=== PATIENT | male | born 1965 | race Caucasian/White ===

== ENCOUNTER 2019-05-17 14:01 | Outpatient (CLI) | payer OTHER, SELFPAY ==
--- NOTE | 2019-05-17 14:09 | XR_ITS ---
WS: [id number] LUMBAR SPINE FLEXION AND EXTENSION TECHNIQUE: 3 views of the lumbar spine: Lateral neutral, flexion, and extension views. CLINICAL INFORMATION: POSTLAMINECTOMY SYNDROME COMPARISON: None. FINDINGS: Prior postoperative changes pedicle screw fixation L3-L5 with interbody fusion grafts. Slight retroli sthesis L2 on L3. No significant instability on flexion-extension. Anterior hypertrophic changes in t he lower thoracic and upper lumbar spine. Anterior wedging at T11. XR/XR lumbar spine f/e only [id number] IMPRESSION: No instability on flexion-extension
== END 2019-05-17 14:02 | disposition home or self-care (01) ==
LOC: RADWPI 14:08
PROVIDERS: Family Provider Family Medicine; PCP Family Medicine; Visit Provider Anesthesiology Pain Medicine
DX: M96.1 Postlaminectomy syndrome, not elsewhere classified (principal)
CPT/HCPCS: 72120

== ENCOUNTER 2019-07-12 08:39 | Outpatient (CLI) | payer OTHER, SELFPAY ==
--- NOTE | 2019-07-12 09:00 | IR_ITS ---
WS: [id number] THORACIC AND LUMBAR MYELOGRAMs HISTORY: Preoperative thoracic spinal cord stimulator placement COMPARISON: None available. FLUOROSCOPY TIME: 1.9 minutes. Procedure, risks and complications were explained to the patient. Risks including bleeding, infection , headaches, allergic reaction and seizures. Consent has been obtained. With the patient in prone position the skin over the lumbar region is cleansed with ChloraPrep and an esthetized with lidocaine. 22-gauge spinal needle is inserted into the thecal sac at the appropriate level determined by fluoroscopy. Omnipaque 300; 12 ml is injected slowly under fluoroscopy with no co mplications. Needle bevel is perpendicular to the longitudinal fibers of the dura. Stylet is reinsert ed prior to removal of the needle. Patient tolerated the procedure well. Patient will proceed to CT f or further evaluation. Posterior thoracic alignment is normal with slight RIGHT curvature. Mild disc space narrowing through out. Anterior bridging osteophytes at the thoracolumbar junction. No fractures. Posterior lumbar fusion from L3 through L5. Bilateral pedicle screws and vertical rods. Large laminec kath defects at the surgical site. Bony bridging graft noted bilaterally. No hardware fractures. Inte rbody spacers at L3-4 and L4-5. L2: L2 retrolisthesis by 4.1 mm on neutral. Decreased disc to 3.1 mm with flexion and 6.1 mm during e xtension. No additional instability. IR/IR myelogram spine thorac/lumb IMPRESSION: 1. Prior fusion hardware with interbody spacers and fused bone graft material from L3 to L5. 2. Mild flexion/extension instability at L2. 3. Mild thoracic spondylosis with no fracture. 4. Mild RIGHT convex curvature thoracic spine.
[2019-07-12] MEDS: iohexol 300 mg/mL 50 mL Btl INTRATHECA (10:02)
--- NOTE | 2019-07-12 11:00 | CT_ITS ---
WS: [id number] CT THORACIC MYELOGRAM HISTORY: Thoracic back pain. Preoperative spinal cord stimulator placement TECHNIQUE: Contiguous 2.5 mm axial images are reviewed to thoracic spine. Images are reformatted in s agittal and coronal planes. All CT scans at [facility] use at least one of these dose opt imization techniques: automated exposure control; mA and/or kV adjustment per patient size (includes targeted exams where dose is matched to clinical indication); or iterative reconstruction. DLP: 976.46 mGycm COMPARISON: None available. Very slight RIGHT convex curvature the lumbar spine. No fractures. Mild disc space narrowing througho ut the thoracic spine with osteophytes. There is artifact through the upper thoracic spine by patient's shoulders and body habitus. There is also limited contrast in the subarachnoid space. The contrast becomes more dense at about the T3-T4 l evel. No significant stenosis centrally. Bilateral mild to moderate foraminal stenosis from T1-2 through T3 -4. T4-5: Large osteophyte and disc complex RIGHT paracentral at T4-5 with contact and deformity of the R IGHT lateral thecal sac. Moderate to severe LEFT foraminal stenosis at the T4-5 level and mild centra l stenosis. T5-6: Severe RIGHT and moderate LEFT foraminal stenosis and mild central stenosis. T6-7: Mild bilateral foraminal stenosis due to osteophytes. T7-8: Small RIGHT paracentral disc protrusion with mild cord contact. T8-9 through T12-L1: Moderate bilateral foraminal stenosis due to combination of disc and facet disea se. Large osteophyte encroaches upon the RIGHT lateral thecal sac at the T11 level. Paravertebral soft tissues are negative. CT/CT thoracic spine w con [id number] IMPRESSION: 1. RIGHT convex curvature thoracic spine with multilevel facet joint arthritis and osteophytosis. 2. Large disc osteophyte contacts the RIGHT lateral thoracic cord with displac ement at the T4-5 level. 3. Small RIGHT paracentral disc protrusion at T7-8 with mild cord contact.
--- NOTE | 2019-07-12 11:30 | CT_ITS ---
WS: [id number] CT MYELOGRAM LUMBAR SPINE HISTORY: HX Fusion/fixation. Preoperative SCS placement TECHNIQUE: Contiguous 2.5 mm axial imaging performed from T12 through the mid sacral level. Bone and soft tissue windows reviewed. Sagittal and coronal reformats are submitted and reviewed. DLP: 2102.[address] scans at [facility] use at least one of these dose optimization techniques: automat ed exposure control; mA and/or kV adjustment per patient size (includes targeted exams where dose is matched to clinical indication); or iterative reconstruction. COMPARISON: 08/28/2010 Posterior fusion hardware from L3 to L5. Interbody spacers at L3-4 and L4-5. Intact fusion posterior laterally from the L3-L5 levels. No lucency around the screws. Large laminectomy defects are present posteriorly at L3-L5. L1-L2: L2-L3: Diffuse annular disc bulging. Curvilinear calcification contacts the ventral thecal sac. This may be a calcified disc or osteophyte. This calcification is causing moderate central stenosis and mercado barticular recess stenosis. L3-L4: Diffuse annular disc bulging. Central calcification with mild contact on the ventral thecal sa c. Thecal sac is widely patent due to the large bilateral laminectomy defects. No significant foramin al stenosis. L4-L5: Very slight narrowing of the thecal sac due to osteophytes from the facets are encroaching jordy trally. Mild bilateral foraminal narrowing. Mild central narrowing. Nerve roots are clumped within th e thecal sac. L5-S1: Diffuse annular disc bulging with calcification contacting the ventral thecal sac extending in to the RIGHT foramen. Calcification may be osteophyte or calcified disc. Mild central stenosis. Sever e RIGHT subarticular recess and RIGHT foraminal stenosis due to combination of the disc, facet diseas e and calcification which may be an osteophyte. No significant stenosis on the LEFT. Partial fusion and bridging of the RIGHT SI joint. CT/CT lumbar spine w con [id number] IMPRESSION: 1. Status post lumbar fusion from L3 to L5 bone fusion and large laminectomy d efects. 2. Severe RIGHT subarticular recess and foraminal stenosis L5-S1 due to combin ation of findings were predominantly due to large osteophytes. 3. Moderate central and subarticular recess stenosis at L2-3 due to calcificat ion centrally which may be a calcified disc or osteophyte. 4. Mild central stenosis at L4-5 due to facet arthropathy. Mild bilateral fora korey stenosis at the L4-5 level also.
== END 2019-07-12 08:40 | disposition home or self-care (01) ==
LOC: RADWPI 08:42
PROVIDERS: Family Provider Family Medicine; PCP Family Medicine; Visit Provider Licensed Practical Nurse
DX: Z01.818 Encounter for other preprocedural examination (principal); M43.26 Fusion of spine, lumbar region; M48.07 Spinal stenosis, lumbosacral region; M47.816 Spondylosis without myelopathy or radiculopathy, lumbar region; M25.78 Osteophyte, vertebrae; M46.84 Other specified inflammatory spondylopathies, thoracic region; M51.24 Other intervertebral disc displacement, thoracic region; M47.814 Spondylosis without myelopathy or radiculopathy, thoracic region
CPT/HCPCS: 62305; 72120; 72129; 72132; Q9967

== ENCOUNTER → 2019-09-13 08:42 | Outpatient (BNVA) | payer OTHER, SELFPAY | PROVIDERS: Family Provider Family Medicine; PCP Family Medicine; Visit Provider Specialist | DX: R25.3 Fasciculation (principal); M96.1 Postlaminectomy syndrome, not elsewhere classified; Z98.890 Other specified postprocedural states | CPT/HCPCS: 95909; 99204 ==

== ENCOUNTER → 2019-10-26 08:12 | Outpatient (BNVA) | payer OTHER, SELFPAY | PROVIDERS: Family Provider Family Medicine; PCP Family Medicine; Visit Provider Licensed Practical Nurse | DX: M96.1 Postlaminectomy syndrome, not elsewhere classified (principal); Z98.890 Other specified postprocedural states; F17.210 Nicotine dependence, cigarettes, uncomplicated | CPT/HCPCS: 99214 ==

== ENCOUNTER → 2019-11-30 09:09 | Outpatient (BNVA) | payer OTHER, SELFPAY | PROVIDERS: Family Provider Family Medicine; PCP Family Medicine; Visit Provider Specialist | DX: R25.3 Fasciculation (principal); G71.19 Other specified myotonic disorders; M96.1 Postlaminectomy syndrome, not elsewhere classified; F17.210 Nicotine dependence, cigarettes, uncomplicated; Z98.890 Other specified postprocedural states | CPT/HCPCS: 99214 ==

== ENCOUNTER → 2019-12-29 15:55 | Outpatient (BNVA) | payer OTHER, SELFPAY | PROVIDERS: Family Provider Family Medicine; PCP Family Medicine; Referring Provider Family Medicine; Visit Provider Specialist | DX: M25.552 Pain in left hip (principal); M25.551 Pain in right hip | CPT/HCPCS: 73522 ==

== ENCOUNTER → 2020-03-01 08:15 | Outpatient (BNVA) | payer OTHER, SELFPAY | PROVIDERS: Family Provider Family Medicine; PCP Family Medicine; Visit Provider Specialist | DX: R25.3 Fasciculation (principal); G71.19 Other specified myotonic disorders; Z98.890 Other specified postprocedural states; M96.1 Postlaminectomy syndrome, not elsewhere classified; F17.210 Nicotine dependence, cigarettes, uncomplicated; M79.7 Fibromyalgia; M46.1 Sacroiliitis, not elsewhere classified | CPT/HCPCS: 20552; 64450; 99214; J1030; J3490 ==

== ENCOUNTER → 2020-08-30 08:00 | Outpatient (BNVA) | payer OTHER, SELFPAY | PROVIDERS: Family Provider Family Medicine; PCP Family Medicine; Visit Provider Specialist | DX: G47.10 Hypersomnia, unspecified (principal); R25.3 Fasciculation; Z98.890 Other specified postprocedural states | CPT/HCPCS: 99214 ==

== ENCOUNTER 2020-10-10 06:52 | Outpatient (CLI) | payer OTHER, SELFPAY ==
[2020-10-10 07:39] VITALS: BP 105/68; PULSE 105; RESP 18; TEMP 38.4; O2SAT 92
[2020-10-10 08:45] VITALS: BP 110/73; PULSE 93; RESP 18; TEMP 38.6; O2SAT 91
[2020-10-10 09:47] VITALS: BP 125/78; PULSE 82; RESP 14; TEMP 38.3
== END 2020-10-10 15:50 | disposition home or self-care (01) ==
PROVIDERS: PCP Emergency Medicine Emergency Medical Services; Visit Provider Nurse Practitioner Family
DX: U07.1 COVID-19 (principal)
CPT/HCPCS: 96365

== ENCOUNTER 2020-10-11 12:58 | Emergency (ER) | payer OTHER, SELFPAY ==
[2020-10-11 13:22] VITALS: BP 102/74; PULSE 103; RESP 24; TEMP 37.8; O2SAT 88; BMI 37.5
--- NOTE | 2020-10-11 15:19 | XR_ITS ---
WS: [id number] Portable AP upright chest, 10/11/2020 Clinical Data: COVID/hypoxia Comparison: Portable chest, 01/29/2018. Findings: Patchy bilateral lower lobe pulmonary opacities which could represent pneumonia. The heart is enlarged. No pneumothorax is seen. XR/XR chest 1V portable [id number] Impression: 1. Patchy bilateral lower lobe pulmonary opacities which could represent pneumo gisela. 2. Cardiomegaly.
--- NOTE | 2020-10-11 15:34 | CT_ITS ---
WS: [id number] CT CHEST ANGIOGRAPHY WITH REFORMATS HISTORY: Hypoxia/ Covid TECHNIQUE: Contiguous axial images are obtained through the chest during arterial injection of intrav enous contrast. Images are reconstructed to evaluate the pulmonary arteries. MIP imaging also reviewe d. All CT scans at [facility] use at least one of these dose optimization techniques: aut omated exposure control; mA and/or kV adjustment per patient size (includes targeted exams where dose is matched to clinical indication); or iterative reconstruction. CONTRAST: Omnipaque 350; 95 mL IV. DLP: 612.8 mGy.cm COMPARISON: None available. Limited opacification of the pulmonary arteries. Centrally no pulmonary embolism. Opacification is mercado boptimal. The lobar branches. No RIGHT heart strain. No pericardial or pleural effusions. Small react eugenie mediastinal and hilar lymph nodes. Normal aorta. Diffuse segmental and subsegmental scattered opacifications and groundglass attenuation. Greatest in the periphery of the lower lung marcos. No pneumothorax. Small hiatal hernia. Hepatic steatosis. No adrenal mass. Mild curvature thoracic spine and spondylosis. CT/CT angio chest PE protcl [id number] IMPRESSION: 1. No central pulmonary embolism. Opacification is limited by poor bolus injec tion. 2. Multifocal, multi lobar opacifications from Covid 19.
[2020-10-11 15:58] LABS: Basophils % 0.2 %; Hematocrit 42.9 % (42.0-52.0); Hemoglobin 14.4 g/dL (11.7-16.6); Lymphocytes # 1.1 10^3/uL (0.8-4.8); Lymphocytes % 23.7 %; Mean Corpuscular HGB Conc 33.6 g/dL (30.0-36.0); Mean Corpuscular Hemoglobin 30.1 pg (28.0-34.0); Mean Corpuscular Volume 89.7 fL (80-94); Mean Platelet Volume 10.3 fL (7.4-10.4); Monocytes # 0.2 10^3/uL (0.2-0.9); Monocytes % 5.2 %; Neutrophils # 3.27 10^3/uL (1.8-7.7); Neutrophils % 70.5 %; Nucleated Red Blood Cells % 0 %; Platelet Count 180 10^3/cmm (130-400); Red Blood Count 4.78 10^6/uL (4.1-5.3); Red Cell Distribution Width 13.6 % (12.1-15.1); White Blood Count 4.6 10^3/uL (4.0-10.0)
[2020-10-11] MEDS: iohexol 350 mg/mL 100 mL Btl IV (16:01)
[2020-10-11 16:03] VITALS: BP 126/66; PULSE 82; RESP 16; O2SAT 95
--- NOTE | 2020-10-11 16:18 | ED_ITS ---
HPI - SOB/Dyspnea General: Chief Complaint: Shortness of Breath/Dyspnea Stated Complaint: Covid +, low O2 Time Seen by Provider: 10/11/20 14:33 History of Present Illness: HPI Narrative: 55-year-old male who presents emergency room with complaint of shortness of breath. Patient was known previously to be diagnosed with Covid and had a Covid antibody infusion yesterday. Reports low oxygen saturations today with myalgias cough and nausea. Has not had any vomiting or diarrhea. MD elicited complaint: shortness of breath and cough Pertinent past history: diabetes Onset (ago): hour(s) Context: occurred during exertion Timing: intermittent and progressively worsening Severity: moderate Exacerbating factors: exertion and coughing Relieving factors: oxygen and rest Known history of: diabetes Associated symptoms: Reports chest congestion and cough; Deny abdominal pain, chest pain, diaphoresis, dizziness, extremity pain, fever (s), hemoptysis, lightheadedness, myalgias, nausea, orthopnea, palpitations, paresthesias, polydipsia, polyuria, rash, sense of impending doom, syncope or vomiting Treatment prior to arrival: none Review of Systems Const: Denies: fever(s) or diaphoresis ENMT: Denies: throat pain, ear or mastoid pain, nasal discharge or nasal congestion Card: Denies: chest pain, palpitations, lightheadedness, syncope or orthopnea Resp: Reports: chest congestion; Denies: hemoptysis GI: Denies: abdominal pain, nausea or vomiting : Denies: flank pain, dysuria, urinary frequency or urinary urgency Musc: Denies: extremity pain Skin/Breast: Denies: rash or pruritus Neuro: Denies: dizziness Endo: Denies: polyuria or polydipsia PFSH ED PFSH: Medical History (Updated 10/11/20 @ 17:49 by Gordy Clemons DO) Diabetes mellitus Lumbar post-laminectomy syndrome Surgical History Status post lumbar spine surgery for decompression of spinal cord 07/2018 Dr. Barak Crandall L3-L4 posterior fusion/fixation. 09/2010 Dr. Barak Crandall L4-L5 posterior fusion/fixation Family History Father , Age 62 Lung disease CAD (coronary artery disease) Mother , Age 88 CAD (coronary artery disease) Social History Smoking and tobacco status: never smoked Alcohol intake: never Household members: spouse Marital status: Current occupational status: retired History of recent travel: No Physical Exam Const: COMMON NORMALS: no acute distress GENERAL APPEARANCE: cooperative and comfortable ORIENTATION/CONSCIOUSNESS: Yes awake, Yes oriented to person, Yes oriented to place and Yes oriented to time HENMT: COMMON NORMALS: normocephalic, atraumatic and hearing grossly normal bilaterally HEAD & SCALP: normocephalic and atraumatic Neck/C-Spine: COMMON NORMALS: no JVD Resp: AUSCULTATION: crackles and wheezes Cardio: COMMON NORMALS: no JVD, regular rate, regular rhythm and No murmurs present (Cardio) RATE: regular rate RHYTHM: regular rhythm GI: COMMON NORMALS: Soft to palpation and No hepatosplenomegaly present AUSCULTATION: Yes normoactive bowel sounds PALPATION: Yes Soft to palpation, No Tenderness to palpation present (GI), No Guarding due to palpation present (GI) and Yes No hepatosplenomegaly present Extremity: COMMON NORMALS: normal to inspection, capillary refill normal, no clubbing, cyanosis or edema, no calf tenderness and no pedal edema Neuro: SENSORIUM/ORIENTATION: Yes oriented to person, Yes oriented to place and Yes oriented to time Skin: COMMON NORMALS: no rashes or lesions noted GENERAL SKIN EXAM: no rashes or lesions noted Course Vital Signs: Vital signs: Vital Signs Temperature 99.7 F H 10/11/20 19:54 Pulse Rate 88 10/11/20 19:54 Respiratory Rate 18 10/11/20 19:54 Blood Pressure 89/63 10/11/20 19:54 Pulse Oximetry 93 10/11/20 19:54 MDM - SOB/Dyspnea MDM Narrative: Medical decision making narrative: Oxygen corrects with oxygen supplementation we will discharge him home on dexamethasone and home O2 follow- up with his primary care doctor the next day or 2 return if has any further problems. Lab Data: Labs: Lab Results 10/11/20 10/11/20 10/11/20 Range/Units 15:30 15:30 15:30 WBC 4.6 (4.0-10.0) 10^3/ uL RBC 4.78 (4.1-5.3) 10^6/u L Hgb 14.4 (11.7-16.6) g/dL Hct 42.9 (42.0-52.0) % MCV 89.7 (80-94) fL MCH 30.1 (28.0-34.0) pg MCHC 33.6 (30.0-36.0) g/dL RDW 13.6 (12.1-15.1) % Plt Count 180 (130-400) 10^3/c mm MPV 10.3 (7.4-10.4) fL Neut % (Auto) 70.5 % Lymph % (Auto) 23.7 % Charlton % (Auto) 5.2 % Eos % (Auto) 0.0 % Baso % (Auto) 0.2 % Neut # (Auto) 3.27 (1.8-7.7) 10^3/u L Lymph # (Auto) 1.1 (0.8-4.8) 10^3/u L Charlton # (Auto) 0.2 (0.2-0.9) 10^3/u L Eos # (Auto) 0.0 (0.0-0.8) 10^3/u L Baso # (Auto) 0.0 (0.0-0.1) 10^3/u L Nucleated RBC % (a uto) 0 % Nucleated RBCs # 0.0 /100WBC D-Dimer 1.04 H (0-0.59) ug/mIFE U Sodium 138 (136-145) mmol/L Potassium 4.1 (3.5-5.1) mmol/L Chloride 97 L (98-107) mmol/L Carbon Dioxide 28 (22-29) mmol/L Anion Gap 17.1 (5-19) BUN 24 H (6-20) mg/dL Creatinine 1.5 H (0.7-1.2) mg/dL GFR Calculation 48.2 L (90-130) mL/min Glucose 99 (65-115) mg/dL Calculated Osmolal ity 290 (285-295) mOsm/k g Lactic Acid (0.5-2.2) mmol/L Calcium 8.4 L (8.5-10.5) mg/dL Total Bilirubin 0.6 (0.15-1.2) mg/dL AST 85 H (0-40) U/L ALT 64 H (0-41) U/L Alkaline Phosphata se 51 (40-130) IU/L C-Reactive Protein 48.0 H (0.0-4.9) mg/L Total Protein 6.8 (6.6-8.7) g/dL Albumin 4.0 (3.5-5.2) g/dL Globulin 2.8 (1.3-4.6) g/dL 10/11/20 Range/Units 15:30 WBC (4.0-10.0) 10^3/ uL RBC (4.1-5.3) 10^6/u L Hgb (11.7-16.6) g/dL Hct (42.0-52.0) % MCV (80-94) fL MCH (28.0-34.0) pg MCHC (30.0-36.0) g/dL RDW (12.1-15.1) % Plt Count (130-400) 10^3/c mm MPV (7.4-10.4) fL Neut % (Auto) % Lymph % (Auto) % Charlton % (Auto) % Eos % (Auto) % Baso % (Auto) % Neut # (Auto) (1.8-7.7) 10^3/u L Lymph # (Auto) (0.8-4.8) 10^3/u L Charlton # (Auto) (0.2-0.9) 10^3/u L Eos # (Auto) (0.0-0.8) 10^3/u L Baso # (Auto) (0.0-0.1) 10^3/u L Nucleated RBC % (a uto) % Nucleated RBCs # /100WBC D-Dimer (0-0.59) ug/mIFE U Sodium (136-145) mmol/L Potassium (3.5-5.1) mmol/L Chloride (98-107) mmol/L Carbon Dioxide (22-29) mmol/L Anion Gap (5-19) BUN (6-20) mg/dL Creatinine (0.7-1.2) mg/dL GFR Calculation (90-130) mL/min Glucose (65-115) mg/dL Calculated Osmolal ity (285-295) mOsm/k g Lactic Acid 2.3 H (0.5-2.2) mmol/L Calcium (8.5-10.5) mg/dL Total Bilirubin (0.15-1.2) mg/dL AST (0-40) U/L ALT (0-41) U/L Alkaline Phosphata se (40-130) IU/L C-Reactive Protein (0.0-4.9) mg/L Total Protein (6.6-8.7) g/dL Albumin (3.5-5.2) g/dL Globulin (1.3-4.6) g/dL Discharge Plan Discharge Patient Disposition: Home Clinical Impression: COVID-19 Condition: Stable Prescriptions: New dexamethasone 6 mg tablet 6 mg PO DAILY Qty: 7 RF: 0 No Action amlodipine 10 mg tablet 10 mg PO DAILY RF: 0 aspirin 325 mg tablet 325 mg PO DAILY RF: 0 baclofen 20 mg tablet 20 mg PO DAILY RF: 0 gabapentin 300 mg capsule 300 mg PO TID RF: 0 hydrochlorothiazide 25 mg tablet 25 mg PO DAILY RF: 0 lisinopril 40 mg tablet 40 mg PO DAILY RF: 0 metformin 1,000 mg tablet 1,000 mg PO DAILY RF: 0 omeprazole 40 mg capsule,delayed release(DR/EC) 40 mg PO BID RF: 0 sertraline 50 mg tablet 50 mg PO DAILY RF: 0 azithromycin 250 mg tablet See Rx Instructions PO .COMPLEX Qty: 6 RF: 0 prednisone 20 mg tablet 20 mg PO DAILY 5 Days Qty: 5 RF: 0 clonazepam [Klonopin] 0.5 mg tablet 0.5 mg PO TID Qty: 90 RF: 5 Discharge Orders: Discharge ED (Routine); Ordered 10/11/20 Ordered By: Gordy Clemons Other Ambulatory Orders: DME: Oxygen (Order) Location: None Selected Ordered By: Gordy Clemons Referrals: Alexander Lazar DO [Primary Care Provider] - Patient Instructions: Opioid Safety Coding Level of Care Code ED Rib Builder for g Fwd Exam Comprehensive
[2020-10-11 16:22] LABS: D Dimer 1.04 ug/mIFEU (0-0.59)
[2020-10-11 16:40] LABS: Lactic Sepsis W/Reflex 2.3 mmol/L (0.5-2.2)
[2020-10-11 16:41] LABS: Alanine Aminotransferase 64 U/L (0-41); Alkaline Phosphatase 51 IU/L (40-130); Aspartate Amino Transferase 85 U/L (0-40); Blood Urea Nitrogen 24 mg/dL (6-20); Calcium 8.4 mg/dL (8.5-10.5); Carbon Dioxide 28 mmol/L (22-29); Chloride 97 mmol/L (98-107); Globulin 2.8 g/dL (1.3-4.6); Glomerular Filtration Rate 48.2 mL/min (90-130); Glucose 99 mg/dL (65-115); Osmolality Calculated 290 mOsm/kg (285-295); Sodium 138 mmol/L (136-145); Total Bilirubin 0.6 mg/dL (0.15-1.2); Total Protein 6.8 g/dL (6.6-8.7)
[2020-10-11 16:43] LABS: Anion Gap 17.1 (5-19); Potassium 4.1 mmol/L (3.5-5.1)
[2020-10-11 17:42] LABS: Reflex Lactate Order REFLEX LACTIC ORDERD
[2020-10-11 17:44] VITALS: O2SAT 84; O2SAT 91; O2SAT 94
[2020-10-11 19:54] VITALS: BP 89/63; PULSE 88; RESP 18; TEMP 37.6; O2SAT 93
== END 2020-10-11 20:00 | disposition home or self-care (01) ==
PROVIDERS: Emergency Provider Family Medicine; PCP Emergency Medicine Emergency Medical Services
DX: U07.1 COVID-19 (principal); Z79.82 Long term (current) use of aspirin; Z79.84 Long term (current) use of oral hypoglycemic drugs; E11.9 Type 2 diabetes mellitus without complications
CPT/HCPCS: 71045; 71275; 80053; 83605; 85025; 85378; 86140; 99283; Q9967

== ENCOUNTER → 2020-11-28 10:31 | Outpatient (BNVA) | payer OTHER, SELFPAY | PROVIDERS: PCP Emergency Medicine Emergency Medical Services; Visit Provider Specialist | DX: G25.0 Essential tremor (principal); R07.9 Chest pain, unspecified; R06.02 Shortness of breath; Z98.890 Other specified postprocedural states; Z86.16 Personal history of COVID-19 | CPT/HCPCS: 99214 ==

== ENCOUNTER 2021-01-08 06:58 | Outpatient (CLI) | payer OTHER, SELFPAY ==
[2021-01-08 07:16] VITALS: BMI 37.5
--- NOTE | 2021-01-08 08:31 | NMCV_ITS ---
NM heri perf SPECT r/s* [id number] Lance Massey Age: 55 Gender: M : 1965 Exam Date: 01/08/2021 08:26 Ordering Phys: Aziza Alvarado MD Technologist: OLLIE Joseph Exam Location: [facility] Indications: SHORTNESS OF BREATH STRESS TEST Please see separate stress test report in [facility] for full findings IMAGE PROTOCOL Rest/Stress 1 Lexiscan Day Radiopharmaceutical Dose (mCi) Administration Site Administered by Rest: Tc-99m 10.7 IV OLLIE Vang Sestamibi Stress:Tc-99m 33.0 IV OLLIE Vang Sestamibi Rest: 08-Jan-2021 60 Discovery 630 Stress: 08-Jan-2021 30 Discovery 630 0.4mg Lexiscan. Images obtained in supine and prone position. SPECT RESULTS Technical Quality: Excellent Raw Data Analysis: Normal Image Corrections: No attenuation or motion correction applied Summed Stress Score: 1 Summed Rest Score: 1 Summed Difference Score: 0 PERFUSION FINDINGS There is a small in size, fixed perfusion defect of the anterior wall. This is consistent with attenuation artifact. FUNCTIONAL RESULTS (calculated via Gated SPECT) Stress Image LV EF (%): 48 Stress EDV (mL):148 TID: 1.13 Stress ESV (mL):77 FUNCTIONAL FINDINGS: There is midly reduce LV systolic function IMPRESSIONS 1. Normal myocardial perfusion imaging with attenuation artifact noted in the anterior wall. 2. LV systolic function is mildly reduced Aly Menchaca MD (Electronically Signed) Final Date: 08 January 2021 11:48 S
--- NOTE | 2021-01-08 09:15 | ECG_ITS ---
[facility] Test Date: 2021-01-08 Pat Name: Lance Massey Department: Room: Gender: Male A And P Mechanic: : 1965 Requested By: Aziza Alvarado Order Number: [id number] Ackerman MD: Aly Menchaca M.D. Interpretive Statements NAME OF STUDY: LEXISCAN SESTAMIBI STRESS TEST INDICATION: [Chest Pain sob, ] Procedure: At the baseline, the blood pressure was 155/89 mmHg with a heart rate of 76 bpm. The electrocardiogram showed normal sinus rhythm, normal axis with normal ST and T's. The Lexiscan was infused over a period of 20 seconds. A total of 0.4 mg of Lexiscan was infused. The stress phase was continued for a total of 5 minutes. Heart rate was at the end of stress phase was 93 bpm and a blood pressure of 150/82 mmHg. The EKG at the peak infusion revealed since normal sinus rhythm with no significant ST-T wave changes. Sestamibi was injected 20 seconds after the Lexiscan infusion. Blood pressure at the end of recovery phase was 154/83 mmHg with a heart rate of 84 bpm. Conclusion: 1. Normal EKG response to Lexiscan infusion 2. No Lexiscan induced chest pain or cardiac arrhythmia. 3. Normal blood pressure and heart rate response. 4. Sestamibi/sestamibi perfusion scan pending; see separate report. Electronically Signed On 01-15-2021 10:58:24 EVAPORATOR REPAIRER by Aly Menchaca M.D. [id number]
[2021-01-08 09:21] VITALS: BP 154/83; PULSE 83
[2021-01-08] MEDS: regadenoson 0.4 Mg/5 ml Syringe IVP (09:23)
== END 2021-01-08 06:59 | disposition home or self-care (01) ==
PROVIDERS: PCP Emergency Medicine Emergency Medical Services; Visit Provider Specialist
DX: R06.02 Shortness of breath (principal); R07.9 Chest pain, unspecified
CPT/HCPCS: 78452; 93017; A9500; J2785

== ENCOUNTER → 2021-02-12 08:01 | Outpatient (BNVA) | payer OTHER, SELFPAY | PROVIDERS: PCP Emergency Medicine Emergency Medical Services; Visit Provider Specialist | DX: R25.3 Fasciculation (principal); G47.10 Hypersomnia, unspecified; Z98.890 Other specified postprocedural states | CPT/HCPCS: 99213; 99214 ==

== ENCOUNTER → 2021-03-12 10:29 | Outpatient (BNVA) | payer OTHER, SELFPAY | PROVIDERS: PCP Emergency Medicine Emergency Medical Services; Visit Provider Internal Medicine | DX: Z01.812 Encounter for preprocedural laboratory examination (principal); Z20.822 Contact with and (suspected) exposure to COVID-19 | CPT/HCPCS: 87635 ==

== ENCOUNTER 2021-03-19 08:35 | Day surgery (SDC) | payer OTHER, SELFPAY ==
[2021-03-15 14:28] VITALS: BMI 37.1
--- NOTE | 2021-03-19 08:41 | ANES.PREANE2 ---
Pre-Anesthetic Assessment Pre-Anesthetic Assessment: Height/Weight: Height 1.91 m Weight 134.717 kg Preop Diagnosis: screening Proposed Procedure: Operation Date: 03/19/21 10:15 Proposed Procedures p Colonoscopy G0121/screening for colon cancer Z12.11(Not Applicable) - Steve Gentile MD Familial anesthetic complications: None Last intake: > 8 hrs Social: Social History: No alcohol and No tobacco Exam: Pre-Anes Outpt Exam: alert, oriented x 3, clear to auscultation bilaterally and regular rate & rhythm Airway: Cervical ROM: WNL MP: 4 Dentition: Partials Additional comments: ruiz Pulmonary: Pulmonary: Asthma and Sleep apnea (?) CV/HEM: CV/HEM: HTN GI: GI: GERD Metabolic: Metabolic: DM (pre) Anesthetic Plan: ASA status: 3 Anesthesia: MAC Risk of > 500 ml blood loss (7ml/kg in children): No PFSH Anesthesia PFSH: Medical History Diabetes mellitus GERD (gastroesophageal reflux disease) HTN (hypertension) Lumbar post-laminectomy syndrome Obesity (BMI 30.0-34.9) Surgical History Status post lumbar spine surgery for decompression of spinal cord 07/2018 Dr. Barak Crandall L3-L4 posterior fusion/fixation. 09/2010 Dr. Barak Crandall L4-L5 posterior fusion/fixation Family History Father , Age 62 Lung disease CAD (coronary artery disease) Mother , Age 88 CAD (coronary artery disease) Social History Smoking and tobacco status: former smoker Alcohol intake: never Household members: spouse Marital status: Current occupational status: retired History of recent travel: No Data Anesthesia Cardiac Studies: Sestamibi Stress Test (Cardiology) 01/08/21
--- NOTE | 2021-03-19 09:18 | W.PM.OPSFHP ---
Same Day Surgery H&P Indication for Procedure/HPI DATE OF PROCEDURE: March 19, 2021 CHIEF COMPLAINT/INDICATIONFOR SURGICAL PROCEDURE: Screen for colon cancer PREOP DIAGNOSIS: Screen PLANNED PROCEDRUE: Operation Date: 03/19/21 10:15 Proposed Procedures p Colonoscopy G0121/screening for colon cancer Z12.11(Not Applicable) - Steve Gentile MD Medications/Allergies* Home Medications Medication Instructions Recorded Confirmed Type amlodipine 10 mg tablet 10 mg PO DAILY 06/23/19 03/15/21 History aspirin 325 mg tablet 325 mg PO DAILY 06/23/19 03/15/21 History baclofen 20 mg tablet 20 mg PO BID 06/23/19 03/15/21 History gabapentin 300 mg capsule 300 mg PO BID 06/23/19 03/15/21 History hydrochlorothiazide 25 mg tablet 25 mg PO DAILY 06/23/19 03/15/21 History lisinopril 40 mg tablet 40 mg PO DAILY 06/23/19 03/15/21 History metformin 1,000 mg tablet 1,000 mg PO BID tab 06/23/19 03/15/21 History omeprazole 40 mg capsule,delayed 40 mg PO BID 06/23/19 03/15/21 History release sertraline 50 mg tablet 25 mg PO DAILY 06/23/19 03/15/21 History Allergies/Adverse Reactions Allergy/AdvReac Type Severity Reaction Status Date / Time Penicillins Allergy Intermediate ALGY-Rash Verified 03/07/21 10:44 Sulfa (Sulfonamide Allergy Intermediate ALGY-Rash Verified 03/07/21 10:44 Antibiotics) Pertinent History/Comorbid Conditions* Medical History (Updated 03/07/21 @ 11:08 by Steve Gentile MD) Diabetes mellitus GERD (gastroesophageal reflux disease) HTN (hypertension) Lumbar post-laminectomy syndrome Obesity (BMI 30.0-34.9) Surgical History (Updated 06/23/19 @ 15:45 by Jenny Lopez APRN) Status post lumbar spine surgery for decompression of spinal cord 07/2018 Dr. Barak Crandall L3-L4 posterior fusion/fixation. 09/2010 Dr. Barak Crandall L4-L5 posterior fusion/fixation Family History (Updated 06/23/19 @ 15:48 by Jenny Lopez APRN) Father, Age 62 Mother, Age 88 CAD (coronary artery disease) Father Mother Lung disease Father Social History Smoking and tobacco status: former smoker Alcohol intake: never Household members: spouse Marital status: Current occupational status: retired History of recent travel: No Pertinent Exam Findings alert, oriented x 3, clear to auscultation bilaterally, regular rate & rhythm, operative site marked and procedure specific exam findings Recommendations Surgery/Procedure today Coding Level of Care Code Acute Apartment Maintenance Technician for Mukesh Pruitt
[2021-03-19 09:37] VITALS: BP 150/87; PULSE 84; RESP 18; TEMP 36.2; O2SAT 98
[2021-03-19] MEDS: sodium chloride 0.9% 1,000 ML 30 ML IV (09:44)
[2021-03-19 11:05] VITALS: BP 160/101; PULSE 87; RESP 16; TEMP 36.2; O2SAT 100
[2021-03-19 11:24] VITALS: BP 154/90; PULSE 89; RESP 16; O2SAT 98
--- NOTE | 2021-03-19 14:08 | ANE.PACU2 ---
Inpatient post-anesthesia follow up: Airway intact: Yes Vital signs: Temperature 97.1 F Pulse Rate 89 Respiratory Rate 16 Blood Pressure 154/90 Pulse Oximetry 98 Oxygen Delivery Me thod Room Air Oxygen Flow Rate 3 Fraction of Inspir ed Oxygen Hydration adequate: Yes Nausea and vomiting: No Pain level: 1 Mental status: Baseline
== END 2021-03-19 11:45 | disposition home or self-care (01) ==
PROVIDERS: PCP Emergency Medicine Emergency Medical Services; Visit Provider Internal Medicine
PROC: 0DJD8ZZ Inspection of Lower Intestinal Tract, Via Natural or Artificial Opening Endoscopic (ICD-10-PCS; CPT 45378; principal; 2021-03-19 10:15)
DX: Z12.11 Encounter for screening for malignant neoplasm of colon (principal); E11.9 Type 2 diabetes mellitus without complications; Z79.84 Long term (current) use of oral hypoglycemic drugs; K21.9 Gastro-esophageal reflux disease without esophagitis; I10 Essential (primary) hypertension; Z79.82 Long term (current) use of aspirin; E66.9 Obesity, unspecified; Z68.37 Body mass index [BMI] 37.0-37.9, adult; Z82.49 Family history of ischemic heart disease and other diseases of the circulatory system; Z87.891 Personal history of nicotine dependence; G47.30 Sleep apnea, unspecified
CPT/HCPCS: G0121; J2704; J7030

== ENCOUNTER 2021-03-20 20:00 | Outpatient (CLI) | payer OTHER, SELFPAY | END 2021-03-20 20:01 | disposition home or self-care (01) | LOC: SLEEP 03-21 05:54 | PROVIDERS: PCP Emergency Medicine Emergency Medical Services; Visit Provider Emergency Medicine Emergency Medical Services | DX: G47.33 Obstructive sleep apnea (adult) (pediatric) (principal) | CPT/HCPCS: 95810 ==

== ENCOUNTER 2021-04-19 20:00 | Outpatient (CLI) | payer OTHER, SELFPAY | END 2021-04-19 20:01 | disposition home or self-care (01) | LOC: SLEEP 04-20 08:58 | PROVIDERS: PCP Emergency Medicine Emergency Medical Services; Visit Provider Emergency Medicine Emergency Medical Services | DX: G47.33 Obstructive sleep apnea (adult) (pediatric) (principal) | CPT/HCPCS: 95811 ==

== ENCOUNTER 2023-05-06 08:25 | Outpatient (CLI) | payer OTHER, SELFPAY ==
--- NOTE | 2023-05-06 08:30 | MR_ITS ---
WS: [id number] MRI LUMBAR SPINE NONCONTRAST TECHNIQUE: Sagittal T1, T2 and STIR imaging. Axial T1 and T2 imaging. 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 5 lumbar type vertebral bodies considered L1-L5 for the purposes of this dictat ion in keeping with the prior numbering convention. Note this differs from the numbering if performed from the craniocervical junction Mild lumbar curve. No acute compression. Disc bulging worse at L2-3. Interbody fusion L3-L4 and L4-L5 . Pedicle screw fixation L2 and L3. Wide decompressive laminectomy defects L2-L5. Postoperative fluid in the laminectomy defects. Interval removal of the L4 and L5 pedicle screws. Interval placement of L2 pedicle screws. L1-L2: Mild facet arthropathy. Spinal canal and foramen are patent. L2-L3: Shallow central disc bulging with slight effacement of the ventral thecal sac. Moderate facet arthropathy. Decompressive laminectomies. Mild RIGHT foraminal narrowing. L3-L4: Spinal canal and foramen are patent. L4-L5: Osteophytic ridging. Mild LEFT bony foraminal narrowing. Spinal canal and RIGHT foramen are pa tent. Moderate facet arthropathy. Mild LEFT to RIGHT narrowing of the thecal sac. L5-S1: Shallow RIGHT paracentral protrusion. Slight impingement on the RIGHT subarticular recess and traversing RIGHT S1 nerve root. Mild central canal stenosis. Mild RIGHT and no significant LEFT saman inal narrowing. Moderate facet arthropathy. Visualized pelvic bony structures: Normal. Paravertebral soft tissues: Normal. Small disc protrusions in the mid thoracic spine seen on the boilermaker imaging more prominent at T3-T4 an d T4-T5. IMPRESSION: 1. Hardware revision and removal performed compared to previous. See above for detail. 2. Shallow central protrusion L2-3 with slight effacement of the ventral thecal sac. Laminectomy def ects performed at this level. Mild RIGHT foraminal narrowing. 3. Mild LEFT L4-5 bony foraminal narrowing. 4. Shallow RIGHT subarticular protrusion L5-S1 with slight impingement on the RIGHT S1 nerve root. M ild RIGHT foraminal narrowing. Mild central canal stenosis with moderate facet arthropathy at this le duarte.
--- NOTE | 2023-05-06 08:30 | CT_ITS ---
WS: [id number] CT LUMBAR SPINE TECHNIQUE: Noncontrast CT of the lumbar spine with coronal and sagittal reformatted images. CLINICAL INFORMATION: SPONDYLOSIS W/O MYELOPATHY/SPINAL STENOSIS COMPARISON: CT lumbar 07/12/2019 DLP: 1324.[address] scans at [facility] use at least one of these dose optimization techniques: automated e xposure control; mA and/or kV adjustment per patient size (includes targeted exams where dose is matc hed to clinical indication); or iterative reconstruction. FINDINGS: Postoperative changes pedicle screw fixation L2-3. Interbody fusion grafts at L3-L4 and L4-L5. Remov al of the L4 and L5 pedicle screws. Dorsal lateral bone graft material. Disc osteophyte complexes mor e prominent at L2-L3 and L5-S1. No evidence of hardware loosening. L1-L2: Spinal canal and foramen are patent. Moderate facet arthropathy. L2-L3: Disc osteophyte protrusion with mild central canal stenosis. Mild RIGHT greater than LEFT bony foraminal narrowing. L3-L4: Postoperative changes. Spinal canal and foramen are patent. Spinal canal has been decompressed . L4-L5: Interbody fusion with osteophytic ridging. Mild LEFT and no significant RIGHT foraminal narrow ing. Mild LEFT RIGHT narrowing of the thecal sac at this level with mild narrowing of the subarticula r recess. L5-S1: Disc osteophyte complex with endplate ridging. Impingement on the RIGHT greater than LEFT S1 n erve roots. Mild central canal stenosis. Moderate RIGHT and mild LEFT foraminal narrowing. Visualized pelvic bony structures: Normal. Paravertebral soft tissues: Normal. IMPRESSION: 1. Postoperative changes described above. 2. Disc osteophyte complex L2-3 with mild central canal stenosis and narrowing of the subarticular r ecess bilaterally. Mild to moderate RIGHT L2-3 foraminal narrowing. 3. Mild LEFT to RIGHT narrowing of the thecal sac just below the L4-5 disc space with narrowing of t he subarticular recess. 4. Disc osteophyte complex L5-S1 with mild central canal stenosis. Moderate RIGHT bony foraminal dillon rowing. 5. No evidence of hardware loosening.
== END 2023-05-06 08:26 | disposition home or self-care (01) ==
LOC: RAD 08:26
PROVIDERS: PCP Emergency Medicine Emergency Medical Services; Visit Provider Neurological Surgery
DX: M54.16 Radiculopathy, lumbar region (principal); M47.816 Spondylosis without myelopathy or radiculopathy, lumbar region; M48.061 Spinal stenosis, lumbar region without neurogenic claudication; Z98.1 Arthrodesis status; M51.26 Other intervertebral disc displacement, lumbar region; M51.27 Other intervertebral disc displacement, lumbosacral region
CPT/HCPCS: 72131; 72148